=== PATIENT | male | born 2000 | race Hispanic/Latino ===

== ENCOUNTER 2025-05-14 10:05 | Emergency (ER) | payer OTHER ==
[~2025-05-14] VITALS: Ht 172.7 cm; Wt 72.7 kg
[2025-05-14] MEDS: KETOROLAC 30 MG/ML 1 ML VIAL IV ONE (13:35)
[2025-05-14] MEDS: LIDOCAINE 4% CREAM 5 GM (LMX4) TOP ONE (13:35)
[2025-05-14] MEDS ORDERED: ISOVUE-370 76% 100 ML VIAL As Ordered ONE (13:47)
[2025-05-14 14:09] LABS: BASO # 0.1 10^3/uL (0.0-0.2); BASO % 0.7 % (0.0-1.0); EOS # 0.1 10^3/uL (0.0-0.5); EOS % 0.9 % (0.0-3.0); LYMPH # 1.8 10^3/uL (1.5-5.0); LYMPH % 25.8 % (24.0-44.0); MONO # 0.5 10^3/uL (0.0-0.8); MONO % 6.7 % (2.0-8.0); NEUTROPHILS # 4.6 10^3/uL (1.5-8.5); NEUTROPHILS % 65.8 % (36.0-66.0); PLATELET COUNT, AUTOMATED 241 10^3/uL (150-450)
[2025-05-14 15:27] VITALS: BP 111/71; TEMP 98.9; O2SAT 100
[2025-05-14] MEDS ORDERED: COLA100C5 PO (15:43)
== END 2025-05-14 15:50 | disposition home or self-care (01) ==
LOC: M ED 10:05
DX: L90.5 Scar conditions and fibrosis of skin (principal); Z98.890 Other specified postprocedural states; Z79.899 Other long term (current) drug therapy
CPT/HCPCS: 74177; 76857; 80047; 85025; 85652; 86140; 96374; 99283; J1885; Q9967